=== PATIENT | male | born 2000 | race Caucasian/White ===

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

== ENCOUNTER 2021-05-19 12:04 | Emergency (ER) | payer SELFPAY ==
[2021-05-19 12:05] VITALS: BP 139/82; PULSE 88; RESP 16; TEMP 35.8; O2SAT 97; BMI 33.5
--- NOTE | 2021-05-19 12:42 | EX.ED.VIS.UR ---
HPI HPI - URI History of Present Illness Chief Complaint: Sore Throat Narrative Narrative: Patient denies significant past medical history except for previous strep throat a few years ago presents with sore throat since last evening. Pain is worse with swallowing. He denies any fevers or chills. States he has a rare cough because of his throat hurting. He has been spitting up small amounts of blood. His pain is on both sides but left greater than right. It hurts more with swallowing. He was sent home from work today for evaluation of his sore throat. ROS ROS ED ROS Narrative Constitutional: No fever, no chills. HEENT: Positive sore throat. Reported spitting up of blood. No neck pain. No loss of vision. No rhinorrhea. Cardiovascular: No chest pain. No palpitations. No pedal edema. Respiratory: Rare cough, usually from throat pain. No shortness of breath. Abdominal: No abdominal pain. No nausea. No vomiting. Genitourinary: No dysuria. No hematuria. Musculoskeletal: No myalgias. No arthralgias. Neurologic: No headaches. No dizziness. No lightheadedness. Skin: No rash. No change in color. Psychiatric: No depression. No anxiety. PFSH PFSH Home Medications famotidine 20 mg PO BID #28 tab 04/04/18 [Rx Last Taken Unknown] penicillin V potassium 500 mg PO 4X/DAY #40 tab 05/19/21 [Rx Last Taken Unknown] Allergy/AdvReac Type Severity Reaction Status Date / Time No Known Allergies Allergy Verified 04/04/18 08:07 Social History Smoking Status: Never smoker EXAM Physical Exam Narrative Exam Narrative: Afebrile. Vital signs noted. HEENT: Normocephalic. Atraumatic. PERRL, EOMI. Neck soft and supple. No point tenderness or step off. My cervical lymphadenopathy left greater than right. Positive exudative tonsillitis with mild tonsillar swelling on left. No uvular shift. Cardiovascular: Regular rate and rhythm. No murmurs, rubs, or gallops appreciated. Respiratory: No tachypnea. Lungs clear to auscultation bilaterally. Gastrointestinal: Abdomen soft, nontender, with normoactive bowel sounds. No rebound or guarding. Neurological: Awake. Alert. Nonfocal, nonlateralizing. Skin: No rash. Normal color. No pallor. Musculoskeletal: No pedal edema. Full range of motion extremities. Const Vital Signs: 05/19/21 12:05 Temperature 96.4 F L Temperature Source Temporal Pulse Rate 88 Respiratory Rate 16 Blood Pressure 139/82 H Blood Pressure Mean 101 Pulse Ox 97 Oxygen Delivery Method Room Air MDM MDM MDM Narrative Medical decision making narrative: Given the patient's history, I assume that he does have strep pharyngitis. He is given his first dose of penicillin and 1 dose of dexamethasone here in the emergency department. Prescription was written for penicillin for 10 days to take 4 times a day. He was told to take all of the course of therapy of antibiotics, and treatment be symptomatic with plenty of oral fluids and [id number] medications. He was given a note to be off work today. I feel he be discharged safely home with follow-up. Return instructions to the emergency department were reviewed. Disposition is discharged home in stable condition. Discharge Plan Triage Chief Complaint: Sore Throat ED Provider: Yon Ortega Dx/Rx/DC Orders Clinical Impression: Strep throat Prescriptions: New penicillin V potassium 500 mg tablet 500 mg PO 4X/DAY Qty: 40 RF: 0 No Action famotidine 20 MG tablet 20 mg PO BID Qty: 28 RF: 0 Stand Alone Forms: ED Work / School Excuse Primary Care Provider: Jose Gary Referrals: Jose Gary MD [Primary Care Provider] - 1 Week if not improving Disposition Disposition: Home, Self Care
[2021-05-19] MEDS: Penicillin Vk 250 MG Tablet 500 MG PO (13:00)
[2021-05-19] MEDS: dexAMETHasone 4 MG Tablet 8 MG PO (13:00)
== END 2021-05-19 13:03 | disposition home or self-care (01) ==
LOC: ED 12:50
PROVIDERS: Emergency Provider Emergency Medicine; PCP Pediatrics; Visit Provider Emergency Medicine
DX: J02.0 Streptococcal pharyngitis (principal); R04.2 Hemoptysis
CPT/HCPCS: 99283

== ENCOUNTER 2023-01-14 19:39 | Emergency (ER) | payer OTHER, SELFPAY ==
[2023-01-14 19:39] VITALS: BP 128/77; PULSE 124; RESP 28; TEMP 36; O2SAT 96; BMI 35.0
[2023-01-14 19:43] VITALS: BP 128/77; PULSE 126; RESP 28; TEMP 37.5; O2SAT 96
[2023-01-14] MEDS: Acetaminophen 500 MG Tablet 1000 MG PO (20:38)
[2023-01-14] MEDS: 0.9% Normal Saline (1000mL) 1,000 ML 1000 ML IV (20:43)
[2023-01-14 20:44] VITALS: BP 137/82; PULSE 91; RESP 22; O2SAT 93
--- NOTE | 2023-01-14 20:50 | RAD_ITS ---
STUDY: X-RAY CHEST REASON FOR EXAM: Male, 22 years old. chest pain TECHNIQUE: Frontal and lateral views of the chest. COMPARISON: None. FINDINGS: Mild perihilar interstitial infiltrates. There is no demonstrated pleural abnormality. Normal size heart. Normal mediastinum and ximena. Normal visualized pulmonary arteries. Normal visualized aortic arch and descending thoracic aorta. Normal visualized thoracic spine. Normal visualized ribs, clavicles, and shoulders. There is no demonstrated abnormality of the visualized soft tissue structures of the upper abdomen. RAD/Chest PA and Lateral IMPRESSION: Mild perihilar interstitial infiltrates Electronically Signed: Edilberto Pineda MD at 21:07 EDT ,
[2023-01-14 20:59] LABS: Absolute Lymphocyte Count 0.73 X10^3/uL (0.83-4.51); Absolute Neutrophil Count 10.7 X10^3/uL (2.0-7.7); Basophil# 0.03 X10^3/uL; Basophil% 0.2 % (0-1); Eosinophil# 0.45 X10^3/uL; Eosinophils% 3.6 % (0-5); Hematocrit 45.7 % (40-54); Hemoglobin 14.9 g/dL (13.0-16.5); Lymphocyte # 0.73 X10^3/ul (0.83-4.51); Lymphocyte % 5.9 % (19-41); Mean Corp Hgb Conc 32.6 g/dL (32-36); Mean Corpuscular Hgb 28.5 pg (27.0-32.0); Mean Corpuscular Volume 87.4 fL (80-94); Mean Platelet Vol. 10.2 fl (6.2-12.0); Monocyte% 3.2 % (0-10); NRBC Flagged by Analyzer 0 % (0-5); Neutrophil # 10.73 X10^3/uL (2.7-7.7); Neutrophil % 86.4 % (47-70); Platelet Count 251 K/mm3 (150-450); RBC Distribution Width CV 12.9 % (11.6-14.6); RBC Distribution Width SD 41.2 fl (35.1-43.9); Red Blood Count 5.23 M/mm3 (4.6-6.2); White Blood Count 12.4 K/mm3 (4.4-11.0)
--- NOTE | 2023-01-14 21:11 | ED.VIS.CHEST ---
HPI History of Present Illness Chief Complaint: Chest Pain Informant: patient Narrative Narrative: Patient is a 22-year-old male with no significant past medical history presenting from [facility] for concerns of hypoxia and chest pain. Patient states he has had flulike symptoms for the past 2 days. He states he had a fever with a Tmax of 101.3. He has had chest pressure especially with breathing and increased shortness of breath. He states he has pain in his chest when he takes a deep breath. He also has a cough that been nonproductive. He has had 2 episodes of vomiting last night but is not none today. Denies any abdominal pain until he had a breathing treatment today and then that seemed to upset his stomach. He also has a mild sore throat and runny nose but denies any ear pain. He initially went to [facility] where he had a COVID test which was negative. In addition they did an EKG which showed sinus tachycardia. His vital signs however were significant for a temperature of 101 ?F and O2 saturation of 87%. He had a heart rate of 136. He was given a breathing treatment and sent to the emergency room. His O2 saturation did improve after the breathing treatment. Patient does not report any history of reactive airway. He states he recalls being sick when he was about 11 years old and having an inhaler at that time but does not use anything since. Notes that his 5-month-old at home has a cold but denies any other sick contacts. States he last ibuprofen at 4 PM. No other complaints or concerns at this time. Denies any swelling of his legs. Denies any rash. PFSH PFSH Home Medications famotidine 20 mg tablet 20 mg PO BID #28 tabs 04/04/18 [Rx Last Taken Unknown] penicillin V potassium 500 mg tablet 500 mg PO 4X/DAY #40 tabs 05/19/21 [Rx Last Taken Unknown] albuterol sulfate 90 mcg/actuation aerosol inhaler (Ventolin HFA) 1 - 2 puff inhalation Q4H PRN PRN Wheezing #1 inh 01/14/23 [Rx Last Taken Unknown] doxycycline hyclate 100 mg capsule 100 mg PO BID #14 caps 01/14/23 [Rx Last Taken Unknown] prednisone 20 mg tablet 40 mg (2 x 20 mg) PO DAILY #10 tabs 01/14/23 [Rx Last Taken Unknown] Allergy/AdvReac Type Severity Reaction Status Date / Time No Known Allergies Allergy Verified 04/04/18 08:07 Social History Smoking Status: Never smoker ROS ROS ED Constitutional Constitutional ED: Reports chills and fever(s) Eyes Eyes: Denies blurry vision ENT ENT ED: Reports rhinorrhea and sore throat; Denies ear pain Cardiovascular Cardiovascular: Reports as per HPI and chest pain; Denies palpitations Respiratory/Chest Respiratory/Chest: Reports cough and dyspnea; Denies sputum Gastrointestinal Gastrointestinal: Reports nausea and vomiting; Denies abdominal pain Genitourinary Genitourinary ED: Denies dysuria or urinary frequency Musculoskeletal Musculoskeletal: Reports myalgias; Denies arthralgias Integumentary Denies rash Neurologic Neurologic: Reports weakness Psychiatric Psychiatric: Denies anxiety Hematologic/Lymphatic Hematologic/Lymphatic: Denies easy bleeding or easy bruising EXAM Physical Exam Const Vital Signs: 01/14/23 19:39 01/14/23 19:43 01/14/23 20:03 Temperature 96.8 F L 99.5 F H Temperature Source Temporal Oral Pulse Rate 124 H 126 H Respiratory Rate 28 H 28 H Respiratory Effort Short of Breath Blood Pressure 128/77 H 128/77 H Blood Pressure Mean 94 94 Pulse Ox 96 96 Oxygen Delivery Method 01/14/23 20:44 01/14/23 20:44 01/14/23 22:00 Temperature Temperature Source Pulse Rate 91 77 Respiratory Rate 22 H 18 Respiratory Effort Blood Pressure 137/82 H 126/44 H Blood Pressure Mean 100 71 Pulse Ox 93 95 Oxygen Delivery Method Room Air Room Air Room Air Positive well nourished and well developed Constitutional Narrative: ill appearing General Appearance ED: well developed and NAD HEENT Reports TM's clear and moist mucous membranes HEENT Narrative: clear rhinorrhea present. Normal oropharynx. normocephalic and atraumatic Tympanic Membrane ED: Yes TM's clear Eyes PERRL and EOMs intact bilaterally Neck supple and no JVD Neck Narrative: No meningeal signs Chest Wall inspection of chest normal and palpation of chest normal Resp normal respiratory effort Resp Narrative: Diminished breath sounds slightly more rhonchorous at the right base Effort and Inspection: pain with movement; Negative for respiratory distress Auscultation: Negative for wheezes Cardio regular rhythm and no murmurs Rate: tachycardic GI normal to inspection, nondistended, normoactive bowel sounds, soft to palpation and non-tender Extremity normal to inspection General Extremety ED: Negative for edema General Extremity: Negative for edema Neuro oriented x3 Sensorium / Orientation: awake Motor Exam: Negative for general weakness Psych mental status grossly normal Skin no rashes or lesions noted and no wounds MDM MDM MDM Narrative Medical decision making narrative: Patient evaluated for hypoxia at [facility] in the setting of fever and respiratory symptoms for the past 2 days. On arrival he is tachycardic with a low-grade temperature. He was febrile prior to arrival. I suspect the tachycardia is more reactive to the fever however underlying cardiac pathology is also on the differential including myocarditis and pericarditis. Given 2 days of flulike illness and for his respiratory symptoms have a lower suspicion for pulmonary emboli given his clinical presentation. Besides his presenting tachycardia he is otherwise low risk for PE. He is not requiring supplemental oxygen in the ER and is not hypoxic here. EKG was reviewed from [facility] personally by myself. It shows sinus tachycardia at a rate of 116 bpm Normal axis with nonspecific T wave inversion in 3 and aVF. There is no prior EKG for comparison. Patient's troponin is normal at 4 therefore of a much lower suspicion for myocarditis. EKG is not consistent with pericarditis. CBC does show leukocytosis with a white blood cell count of 12.4. CMP, lactate and lipase largely unremarkable. 2 view chest x-ray viewed by myself as well as radiology does show mild perihilar interstitial infiltrates. Given his fever, white blood cell count and respiratory symptoms will treat for pneumonia however it is possible this is viral. He did have a negative COVID test just prior to arrival so it was not repeated here. Counseled that with only 2 days of symptoms is possible it could be a false negative and if he wants to he could retest in another 24-48 hours. Patient is ambulated in the ER and does not have any significant desaturation however he does drop to 91% which is a little unusual for 22-year-old. However, as he still healthy at baseline I think he is still a good candidate for outpatient treatment. He is agreeable. He is started on doxycycline and given first dose in the emergency room. He also given a prescription for an albuterol inhaler as he does report wheezing earlier today as well as prednisone burst. Is given very strict return precautions I spoke with the patient as well as his significant other about my recommendation to get a home pulse oximeter to keep an eye on his O2 level. Lab Data Attestation: I reviewed the patient's lab results. Labs: Laboratory Results - last 24 hr 01/14/23 20:45 WBC 12.4 H RBC 5.23 Hgb 14.9 Hct 45.7 MCV 87.4 MCH 28.5 MCHC 32.6 RDW Std Deviation 41.2 RDW Coeff of Jeremías 12.9 Plt Count 251 MPV 10.2 Immature Gran % (Auto) 0.700 Neut % (Auto) 86.4 H Lymph % (Auto) 5.9 L [place] % (Auto) 3.2 Eos % (Auto) 3.6 Baso % (Auto) 0.2 Absolute Neuts (auto) 10.7 H Absolute Lymphs (auto) 0.73 L Nucleated RBC % 0 Sodium 140 Potassium 4.1 Chloride 106 Carbon Dioxide 27.0 Anion Gap 7 BUN 12 Creatinine 1.04 Estim Creat Clear Calc 137.94 Est GFR (MDRD) Af Amer 116 Est GFR (MDRD) Non-Af 96 BUN/Creatinine Ratio 11.5 Glucose 117 H Lactic Acid 1.2 Calcium 9.6 Total Bilirubin 0.90 AST 19 ALT 45 Alkaline Phosphatase 78 Troponin I High Sens 4 Total Protein 8.2 Albumin 4.0 Globulin 4.2 Albumin/Globulin Ratio 1.0 Lipase 15 Radiography Chest X-Ray - ED: 2 View, Read by ED Physician and - (Perihilar interstitial infiltrates) Diagnostic Testing: Clinical Impression(s) from Imaging Studies Chest X-Ray 01/14/23 20:50 IMPRESSION: Mild perihilar interstitial infiltrates Electronically Signed: Edilberto Pineda MD at 21:07 EDT , Discharge Plan Triage Chief Complaint: Chest Pain ED Provider: Iris Ornelas Dx/Rx/DC Orders Clinical Impression: Fever, Community acquired bacterial pneumonia Instructions: ED Pneumonia (Adult) Prescriptions: New doxycycline hyclate 100 mg capsule 100 mg PO BID Qty: 14 0RF prednisone 20 mg tablet 40 mg PO DAILY Qty: 10 0RF albuterol sulfate [Ventolin HFA] 90 mcg/actuation HFA aerosol inhaler 1 - 2 puff inhalation Q4H PRN PRN (Reason: Wheezing) Qty: 1 0RF No Action famotidine 20 MG tablet 20 mg PO BID Qty: 28 0RF penicillin V potassium 500 mg tablet 500 mg PO 4X/DAY Qty: 40 0RF Primary Care Provider: Jose Gary Referrals: Jose Gary MD [Primary Care Provider] - Activity Restrictions/Additional Instructions: Please follow-up closely with your primary care doctor (ideally Tuesday for repeat evaluation). If you feel your breathing is worsening please return to the emergency room. I do recommend home pulse oximeter. If your O2 saturation is going below 90% please come back to the ER for further evaluation. Take all medications as prescribed. Continue to alternate ibuprofen and Tylenol for fever and pain control.
[2023-01-14 21:18] LABS: AST(SGOT) 19 U/L (15-37); Alanine Aminotransfer ALT/SGPT 45 U/L (16-61); Alkaline Phosphatase 78 U/L (45-117); Anion Gap 7 (5-15); BUN 12 mg/dL (7-18); BUN/Creat Ratio 11.5 RATIO (10-20); Calcium,Total 9.6 mg/dL (8.5-10.1); Chloride 106 mmol/L (98-107); Creatinine, Serum 1.04 mg/dL (0.70-1.30); EST Glomerular Filtration Rate 96 mL/min (>60); Est Glom Filt Rate - Afr Amer 116 mL/min (>60); Estimated Creatinine Clearance 137.94 ml/min; Globulin 4.2 g/dL (2.2-4.2); Glucose 117 mg/dL (74-106); Lipase 15 U/L (13-75); Potassium 4.1 mmol/L (3.5-5.1); Protein, Total 8.2 g/dL (6.4-8.2); Sodium Level 140 mmol/L (136-145); Troponin-I HS 4 pg/mL (3.0-78.0)
[2023-01-14 21:42] VITALS: O2SAT 94
[2023-01-14 22:00] VITALS: BP 126/44; PULSE 77; RESP 18; O2SAT 95
[2023-01-14 22:04] LABS: Lactic Acid 1.2 mmol/L (0.4-1.9)
[2023-01-14] MEDS: Doxycycline 100 MG CAPSULE PO (23:28)
[2023-01-14 23:32] VITALS: BP 127/61; PULSE 91; RESP 16; O2SAT 95
== END 2023-01-14 23:33 | disposition home or self-care (01) ==
PROVIDERS: Emergency Provider Emergency Medicine; PCP Pediatrics; Visit Provider Emergency Medicine
DX: J18.9 Pneumonia, unspecified organism (principal); R50.9 Fever, unspecified
CPT/HCPCS: 71046; 80053; 83605; 83690; 84484; 85025; 93005; 96360; 96361; 99285; J7030